=== PATIENT | female | born 1940 | race Caucasian/White ===

== ENCOUNTER 2017-07-02 17:45 | Inpatient (IN) | payer OTHER, MEDICARE ==
[~2017-07-02] VITALS: Ht 152.4 cm; Wt 76.9 kg
[2017-07-02 18:37] LABS: BASOPHIL % 0.3 % (0-2); PLATELET COUNT 233 x10^3mcL (130-400)
[2017-07-02 18:42] LABS: RED CELL DISTRIBUTION WIDTH 19.5 % (11.5-14.5)
[2017-07-02 18:46] LABS: CALCIUM 8.4 mg/dL (8.5-10.1); CHLORIDE SERUM 107 mmol/L (98-107); CREATININE SERUM 1.6 mg/dL (0.6-1.0); GLUCOSE SERUM 104 mg/dL (74-106); POTASSIUM SERUM 3.9 mmol/L (3.5-5.1); SODIUM SERUM 142 mmol/L (136-145)
[2017-07-02 18:51] LABS: ALBUMIN 3.4 g/dL (3.4-5.0); ALKALINE PHOSPHATASE 64 U/L (46-116); ALT/SGPT 13 U/L (14-59); AST/SGOT 16 U/L (15-37); BILIRUBIN TOTAL 0.44 mg/dL (0.20-1.00); TOTAL PROTEIN, SERUM 6.6 g/dL (6.4-8.2); rbc morphology (normal/abnorm) ABNORMAL (NORMAL)
[2017-07-02 18:52] LABS: ovalocyte/elliptocyte 1+
[2017-07-02 19:04] LABS: UA SPECIFIC GRAVITY 1.015 (1.005-1.035); microscopic required? YES; urine erythrocyte 3+ (NEGATIVE)
[2017-07-02 20:06] LABS: T3 TOTAL 0.9 ng/mL
[2017-07-02 20:15] LABS: FREE T4 1.42 ng/dL (0.76-1.46); FREE THYROXINE INDEX 3.7 ug/dL (1.4-4.5); T4(THYROXINE) 10.2 ug/dL (4.7-13.3)
[2017-07-02 20:53] LABS: CHOLESTEROL/HDL RATIO 1.7; MAGNESIUM 2.1 mg/dL (1.8-2.4); PHOSPHOROUS 3.2 mg/dL (2.5-4.9)
[2017-07-02] MEDS ORDERED: NIFEDIPINE60 MG PO (21:07)
[2017-07-02] MEDS ORDERED: PENTOXIFYL XR400 M1 PO (21:07)
[2017-07-02] MEDS ORDERED: ZOCOR40 MG PO (21:08)
[2017-07-02] MEDS ORDERED: XARELTO10 M1 PO (21:08)
[2017-07-02] MEDS ORDERED: METOPROLOL TART25 M1 PO (21:09)
[2017-07-02] MEDS ORDERED: METFORMIN HCL500 MG PO ×2 (21:09→22:10)
[2017-07-02 21:42] VITALS: BP 150/50
[2017-07-02 23:44] LABS: TOTAL IRON BINDING CAPACITY 365 ug/dL (250-450)
[2017-07-02 23:46] LABS: BASOPHIL % 0.2 % (0-2); PLATELET COUNT 215 x10^3mcL (130-400)
[2017-07-02 23:50] LABS: RED CELL DISTRIBUTION WIDTH 22.9 % (11.5-14.5)
[2017-07-02 23:51] LABS: IRON 16 ug/dL (50-170)
[2017-07-02 23:59] LABS: RED BLOOD CELLS 3.56 M/mm3 (4.10-5.10)
[2017-07-03 05:46] VITALS: BP 134/53
[2017-07-03 06:19] LABS: BASOPHIL % 0.4 % (0-2); PLATELET COUNT 225 x10^3mcL (130-400)
[2017-07-03 06:31] LABS: CALCIUM 8.1 mg/dL (8.5-10.1); CARBON DIOXIDE 23.8 mmol/L (21-32); CHLORIDE SERUM 109 mmol/L (98-107); CREATININE SERUM 1.1 mg/dL (0.6-1.0); GLUCOSE SERUM 92 mg/dL (74-106); MAGNESIUM 2.2 mg/dL (1.8-2.4); PHOSPHOROUS 3.4 mg/dL (2.5-4.9); POTASSIUM SERUM 3.7 mmol/L (3.5-5.1); SODIUM SERUM 143 mmol/L (136-145)
[2017-07-03 06:52] LABS: RED CELL DISTRIBUTION WIDTH 23.3 % (11.5-14.5)
[2017-07-03 08:08] LABS: rbc morphology (normal/abnorm) ABNORMAL (NORMAL)
[2017-07-03 08:09] LABS: ovalocyte/elliptocyte 1+; tear drop cell (dacryocyte) 1+
[2017-07-03 09:22] VITALS: BP 137/51
[2017-07-03 13:50] VITALS: BP 130/59
[2017-07-03 17:44] VITALS: BP 123/50
[2017-07-03 21:00] VITALS: BP 117/47
[2017-07-04 05:58] VITALS: BP 113/50
[2017-07-04 07:05] LABS: CHLORIDE SERUM 109 mmol/L (98-107); CREATININE SERUM 0.8 mg/dL (0.6-1.0); GLUCOSE SERUM 89 mg/dL (74-106); PHOSPHOROUS 2.7 mg/dL (2.5-4.9); POTASSIUM SERUM 3.3 mmol/L (3.5-5.1); SODIUM SERUM 142 mmol/L (136-145)
[2017-07-04 07:07] LABS: BASOPHIL % 0.4 % (0-2); PLATELET COUNT 202 x10^3mcL (130-400)
[2017-07-04 07:14] LABS: RED CELL DISTRIBUTION WIDTH 23.4 % (11.5-14.5)
[2017-07-04 07:24] LABS: rbc morphology (normal/abnorm) ABNORMAL (NORMAL)
[2017-07-04 09:07] VITALS: Ht 152.4 cm; Wt 76.9 kg
[2017-07-04 09:22] VITALS: BP 114/42
[2017-07-04 12:52] VITALS: BP 119/48
[2017-07-04 17:22] VITALS: BP 120/46
[2017-07-04 21:03] VITALS: BP 130/57
[2017-07-05 05:53] VITALS: BP 137/58
[2017-07-05 06:32] LABS: CALCIUM 8.2 mg/dL (8.5-10.1); CARBON DIOXIDE 24.2 mmol/L (21-32); CHLORIDE SERUM 110 mmol/L (98-107); CREATININE SERUM 0.9 mg/dL (0.6-1.0); GLUCOSE SERUM 93 mg/dL (74-106); PHOSPHOROUS 2.8 mg/dL (2.5-4.9); SODIUM SERUM 142 mmol/L (136-145)
[2017-07-05 07:28] LABS: BASOPHIL % 0.6 % (0-2); PLATELET COUNT 201 x10^3mcL (130-400)
[2017-07-05 07:29] LABS: RED CELL DISTRIBUTION WIDTH 23.8 % (11.5-14.5)
[2017-07-05 07:30] LABS: rbc morphology (normal/abnorm) ABNORMAL (NORMAL)
[2017-07-05 09:00] VITALS: BP 138/61
[2017-07-05 13:32] VITALS: BP 143/53
[2017-07-05 16:40] VITALS: BP 149/59
[2017-07-05 21:41] VITALS: BP 139/69
[2017-07-05 22:27] LABS: rbc morphology (normal/abnorm) ABNORMAL (NORMAL)
[2017-07-06 05:40] VITALS: BP 134/61
[2017-07-06 10:02] VITALS: BP 149/53
[2017-07-06 10:15] VITALS: BP 149/53
[2017-07-06 17:14] VITALS: BP 142/61
[2017-07-06 21:39] VITALS: BP 118/62
[2017-07-07 04:24] LABS: BASOPHIL % 0.6 % (0-2); PLATELET COUNT 193 x10^3mcL (130-400)
[2017-07-07 04:27] LABS: RED CELL DISTRIBUTION WIDTH 22.9 % (11.5-14.5)
[2017-07-07 04:28] VITALS: BP 136/55
[2017-07-07 04:41] LABS: CARBON DIOXIDE 24.3 mmol/L (21-32); CHLORIDE SERUM 107 mmol/L (98-107); CREATININE SERUM 0.8 mg/dL (0.6-1.0); GLUCOSE SERUM 92 mg/dL (74-106); MAGNESIUM 1.8 mg/dL (1.8-2.4); PHOSPHOROUS 3.6 mg/dL (2.5-4.9); POTASSIUM SERUM 3.6 mmol/L (3.5-5.1); SODIUM SERUM 141 mmol/L (136-145)
[2017-07-07 09:07] VITALS: BP 126/48
[2017-07-07 09:20] VITALS: BP 116/55
[2017-07-07 15:45] VITALS: BP 116/55
== END 2017-07-07 16:15 | disposition short-term general hospital (02) | DRG 532 ==
LOC: ED 17:45 → DU 19:28 → MU 07-06 08:39
PROVIDERS: Emergency Medicine; Family Medicine
PROC: 30233N1 Transfusion of Nonautologous Red Blood Cells into Peripheral Vein, Percutaneous Approach (ICD-10-PCS; 2017-07-02)
PROC: 3E0234Z Introduction of Serum, Toxoid and Vaccine into Muscle, Percutaneous Approach (ICD-10-PCS; principal; 2017-07-03)
DX: N95.0 Postmenopausal bleeding (principal); N17.0 Acute kidney failure with tubular necrosis; I50.43 Acute on chronic combined systolic (congestive) and diastolic (congestive) heart failure; D62 Acute posthemorrhagic anemia; E11.51 Type 2 diabetes mellitus with diabetic peripheral angiopathy without gangrene; E11.621 Type 2 diabetes mellitus with foot ulcer; L97.419 Non-pressure chronic ulcer of right heel and midfoot with unspecified severity; B95.62 Methicillin resistant Staphylococcus aureus infection as the cause of diseases classified elsewhere; E83.51 Hypocalcemia; I10 Essential (primary) hypertension; I25.10 Atherosclerotic heart disease of native coronary artery without angina pectoris; D50.8 Other iron deficiency anemias; N39.0 Urinary tract infection, site not specified; E78.5 Hyperlipidemia, unspecified; Z90.710 Acquired absence of both cervix and uterus; Z86.718 Personal history of other venous thrombosis and embolism; Z79.01 Long term (current) use of anticoagulants; Z82.49 Family history of ischemic heart disease and other diseases of the circulatory system; Z82.3 Family history of stroke; Z83.3 Family history of diabetes mellitus; Z23 Encounter for immunization
CPT/HCPCS: 82962; 83880; 84439; 90658; J0696; J1200; J1644; J2916; J3490; J7030; J7040; P9016; Q0092; Q0162; Q9967

== ENCOUNTER 2018-11-17 17:48 | Inpatient (IN) | payer OTHER, MEDICARE ==
[~2018-11-17] VITALS: Ht 157.5 cm; Wt 57.0 kg
[~2018-11-17 17:48] MED LIST: METFORMIN HCL500 MG PO; METOPROLOL TART25 M1 PO; NIFEDIPINE60 MG PO; PENTOXIFYL XR400 M1 PO; XARELTO10 M1 PO; ZOCOR40 MG PO
--- NOTE | 2018-11-17 18:09 | NUR ---
PT BIB [facility] FOR SOB REPORTEDLY SINCE 2PM. FAMILY WAS ADVISED BY HOME HEALTH NURSE TO BRING PT TO ED. PT ARRIVES WITH LABORED BREATHING WHEEZE NOTED UPON AUSCULTATION THROUGHOUT. PT IS AWAKE FOLLOWS SOME COMMANDS APHASIC DUE TO RECENT STROKE WITH R SIDED DEFICITS. PT HAS STAGE 4 CERVICAL/LUNG/AND LIVER CA PT PLACED ON FULL CM SINUS TACH ARRIVED WITH 2ND BREATHING TX IN PROGRESS OF ALBUTEROL ATROVENT. FAMILY AT BEDSIDE AWAITING MD CASTILLO AND ORDERS WILL MONITOR
--- NOTE | 2018-11-17 18:30 | NUR ---
PT OFF O2FOR ABG BLOOD DRAW
--- NOTE | 2018-11-17 18:42 | NUR ---
MSE COMPLETED BY DR LEIJA
--- NOTE | 2018-11-17 19:06 | NUR ---
REPORT GIVEN TO JUNAID BYRNES RESUMING CARE OF PT
--- NOTE | 2018-11-17 19:08 | NUR ---
REPORT RECEIVED FROM KRISTAL BYRNES TO ASSUME CARE OF PT. PT IN POSITION OF COMFORT. DAUGHTER STS THAT PT STS THAT HER STOMACH HURTS. INFORMED. DAUGHTER STS THAT IT AWLAYS HURTS. +BOWEL SOUNDS IN ALL 4 QUAD. VSS. PT HAS RESP LABORED BREATING ON 2L NC. VSS. WILL CONTINUE TO MONITOR. XRAY AT BEDSIDE.
--- NOTE | 2018-11-17 19:15 | NUR ---
LAB AT BEDSIDE.
[2018-11-17 19:23] LABS: microscopic required? YES; urine erythrocyte 3+ (NEGATIVE)
[2018-11-17 20:25] LABS: PLATELET COUNT 309 x10^3mcL (130-400)
[2018-11-17 20:27] LABS: RED CELL DISTRIBUTION WIDTH 17.4 % (11.5-14.5)
[2018-11-17 20:34] LABS: ALKALINE PHOSPHATASE 164 U/L (46-116); ALT/SGPT 20 U/L (14-59); AST/SGOT 28 U/L (15-37); BILIRUBIN TOTAL 0.31 mg/dL (0.20-1.00); CALCIUM 8.3 mg/dL (8.5-10.1); CHLORIDE SERUM 121 mmol/L (98-107); GLUCOSE SERUM 121 mg/dL (74-106); POTASSIUM SERUM 4.1 mmol/L (3.5-5.1); SODIUM SERUM 153 mmol/L (136-145); TOTAL PROTEIN, SERUM 6.3 g/dL (6.4-8.2)
[2018-11-17 20:41] LABS: ALBUMIN 2.4 g/dL (3.4-5.0); CARBON DIOXIDE 7.8 mmol/L (21-32)
[2018-11-17 20:42] LABS: CREATININE SERUM 4.3 mg/dL (0.6-1.0)
[2018-11-17 20:54] LABS: BAND NEUTROPHIL 2 % (0-10); BASOPHIL 0 % (0-2); MONOCYTE 4 % (0-7); SEGMENTED NEUTROPHILS 78 % (37-75); rbc morphology (normal/abnorm) ABNORMAL (NORMAL)
[2018-11-17] MEDS ORDERED: DEXAMETHASONE4 MG PO (21:27)
[2018-11-17] MEDS ORDERED: LEVOTHYROXIN0.025 M2 PO (21:27)
[2018-11-17] MEDS ORDERED: PEPCID20 MG PO (21:28)
[2018-11-17] MEDS ORDERED: HYDROCORTISONE V0.2% TOP (21:28)
[2018-11-17] MEDS ORDERED: LORAZEPAM0.5 MG PO (21:28)
[2018-11-17] MEDS ORDERED: BENADRYL ALLERG25 M1 PO (21:28)
[2018-11-17] MEDS ORDERED: [UNRECOGNIZED DRUG - OTHER] MM (21:29)
[2018-11-17] MEDS ORDERED: NIFEDIPINE60 MG PO (21:29)
[2018-11-17] MEDS ORDERED: PROCHLORPERAZIN10 MG PO (21:29)
[2018-11-17] MEDS ORDERED: SENNA8.6 M2 PO (21:30)
[2018-11-17] MEDS ORDERED: XARELTO10 M1 PO (21:31)
--- NOTE | 2018-11-17 21:55 | NUR ---
PT TRANSFERRED FROM ER VIA [facility] ACCOMPANIED BY 1 RN AND 1 EMT. PT TRANSFERRED TO ICU BED WITH FULL ASSIST. PT APPEARS LETHARGIC BUT AROUSABLE. ABLE TO TRACK WITH EYES. PT APHASIC. HX: STROKE WITH R SIDED DEFICIT. PERRLA NOTED. EENT FREE OF DISCHARGE. RESPS EVEN AND TACHYPNEIC ON O2 2LPM VIA NC. CHEST RISE EQUAL AND SYMMETRICAL. LUNGS SOUNDS EXP WHEEZES, DIM BASES. THREAD SEPARATOR IN PLACE SHOWING ST WITH HR 145. CHEST WALL STABLE. NO S/SX OF CP, SYNCOPE, OR DIZZINESS. PULSES PALPABLE X4. CAP REFILL < 3 SECS. NO EDEMA NOTED. IV TO R WRIST G 20 INTACT AND PATENT. IVF NS INFUSING @ 100ML/HR. R UPPER KRIS CATH NOTED. PTS DAUGHTER STS PT HAD 5-6 LOOSE STOOL DAILY. ABD FLAT, SOFT, NONTENDER TO TOUCH. BOWEL SOUNDS HYPOACTIVE. F/C INTACT AND DRAINING VIA GRAVITY, SLIGHT BLOOD TINGED WITH SEDIMENTS NOTED. R ANKLE ULCER, DSG CDI. BUE SCATTERED ECCHYMOSIS. GEN WEAKNESS NOTED. TURNED AND REPOSITIONED Q2H FOR PRESSURE RELIEF. FALL PRECAUTIONS IN PLACE. PT ON NEUTROPENIC PRECAUTION D/T ONGOING CHEMOTHERAPY FOR PRESENT CANCER. ALL NEEDS MET AT THIS TIME. WILL CONTINUE TO MONITOR.
[2018-11-17 22:38] VITALS: BP 148/82
--- NOTE | 2018-11-17 23:00 | NUR ---
16 FR F/C INSERTED AT EASE USING ASEPTIC TECHNIQUE. CATHETER SECURED TO R INNER THIGH. 150ML OF CLOUDY YELLOW URINE THEN BLOOD TINGED URINE RETURN NOTED TO BAG. DR TAVERA AT BEDSIDE MADE AWARE. F/C DRAINIG VIA GRAVITY. WILL CONTINUE TO MONITOR.
[2018-11-17 23:35] VITALS: BP 144/64
[2018-11-18 00:09] VITALS: BP 149/65
--- NOTE | 2018-11-18 01:54 | NUR ---
DR TAVERA AT BEDSIDE WITH DARNELL BYRNES TO TRANSLATE, SPEAKING TO DAUGHTER AT BEDSIDE.
[2018-11-18 03:15] VITALS: BP 129/66
[2018-11-18 04:49] LABS: PLATELET COUNT 262 x10^3mcL (130-400)
[2018-11-18 05:02] LABS: RED CELL DISTRIBUTION WIDTH 16.9 % (11.5-14.5)
[2018-11-18 05:15] LABS: CALCIUM 8.1 mg/dL (8.5-10.1); CHLORIDE SERUM 126 mmol/L (98-107); CREATININE SERUM 3.9 mg/dL (0.6-1.0); GLUCOSE SERUM 122 mg/dL (74-106); POTASSIUM SERUM 3.9 mmol/L (3.5-5.1); SODIUM SERUM 156 mmol/L (136-145)
[2018-11-18 05:20] LABS: BAND NEUTROPHIL 1 % (0-10); MONOCYTE 2 % (0-7); SEGMENTED NEUTROPHILS 87 % (37-75)
[2018-11-18 05:21] LABS: CARBON DIOXIDE 8.2 mmol/L (21-32)
[2018-11-18 05:24] LABS: acanthocyte (spur cell) 1+; rbc morphology (normal/abnorm) ABNORMAL (NORMAL); schistocyte (helmet cell) 1+
--- NOTE | 2018-11-18 06:03 | NUR ---
PT NOTED WITH SMALL AMT OF STOOL, COLLECTED AND SENT TO LAB. PT CLEANED. F/C CARE PROVIDED. LINENS CHANGED. REPOSITIONED TO COMFORT.
--- NOTE | 2018-11-18 06:05 | NUR ---
PT FACIAL GRIMACING AND TACHYCARDIC. PTS DAUGHTER AT BEDSIDE REQUESTING FOR PAIN MED. DR STALEY MADE AWARE. AWAITING FOR FURHTER ORDERS.
--- NOTE | 2018-11-18 06:31 | NUR ---
CREDIT PRODUCT ANALYST CALLED STATES TO CLAMP MYERS AT THIS TIME. WILL BE SEEING PT IN AN HR.
--- NOTE | 2018-11-18 06:32 | NUR ---
ABNORMAL LABS REPORTED TO DR STALEY. AWAITING FOR FURTHER ORDERS.
--- NOTE | 2018-11-18 06:37 | NUR ---
DR TAVERA MADE AWARE, NO DIET ORDERED. DR TAVERA STATES WAITING FOR SWALLOW EVAL TO BE DONE.
--- NOTE | 2018-11-18 07:30 | NUR ---
PT IS AWAKE AND ALERT BUT APHASIC. ABLE TO FOLLOW SIMPLE COMMANDS SUCH HAND TUNGSTEN REFINER; RT SIDE WEAKNESS NOTED; MILD SOB NOTED; O2 AT 2L/NC IN USE; HOB ELEVATED; DENIES PAIN. IVF NSS AT 100 ML/HR INFUSING; RW SITE PATENT AND WITHOUT INFILTRATION. RT AVILEZ DSG NOTED AND VISITOR IN THE ROOM REFUSED TO OPEN THE DSG FOR ASSESSMENT. RT CHEST PORTACATH IN PLACE AND COVERED WITH BANDAID; MYERS CATHETER DRAINING BLOOD TINGED URINE BY GRAVITY. FALL, SAFETY AND NEUTROPENIC PRECAUTION OBSERVED. WILL CONTINUE TO MONITOR STATUS.
[2018-11-18 08:00] VITALS: BP 141/66
--- NOTE | 2018-11-18 08:00 | NUR ---
PT HAD BM WITH DIARRHEAL DARK BROWN STOOLS; PT KEPT CLEAN AND DRY;
[2018-11-18 08:22] VITALS: Ht 157.5 cm; Wt 57.0 kg
--- NOTE | 2018-11-18 10:18 | NUR ---
0835-RENAL US BEING DONE IN THE ROOM 0930-PT ABLE TO SWALLOW A SMALL AMOUNT OF APPLE SAUCE WITHOUT SIGN OF ASPIRATION; TOOK SCHEDULED MED LOPRESSOR WITH APPLE SAUCE AGAIN WITHOUT SIGNS OF ASPIRATION BUT REFUSED TO TAKE FURTHER MEDS AFTER; FAMILY IN THE ROOM AND ARE AWARE. 1000-PHYSICAL THERAPIST ANA IN THE ROOM ASSESSING PT; PT'S O2 SAT FLUCTUATES TO HIGH 80'S TO LOW 90'S DURING ACTIVITY; O2 SAT SENSOR TRANSFERRED TO FINGER; 1022-PT SLEEPING AT THIS TIME; O2 SAT IS 98%
--- NOTE | 2018-11-18 11:05 | NUR ---
ROUNDS WITH THE MEDICAL TEAM. IS AWARE OF THE US RENAL RESULTS.
--- NOTE | 2018-11-18 11:16 | NUR ---
DR. FAIRCHILD, RESIDENTS, TUBE FORMER OPERATOR AND PRIMARY RN AT BEDSIDE FOR MORNING ROUNDS. PT'S FAMILY AT BEDSIDE AND UPDATED. HOSPICE EVAL TO BE ORDERED. PT ALSO STABLE TO TRANSFER TO [facility]. WILL CONT TO MONITOR.
--- NOTE | 2018-11-18 11:30 | NUR ---
DR. SHARP FOR NEPHRO CONSULT IS HERE; ASSESSED PT, TALKED TO GRANDDAUGHTER AND GAVE VERBAL ORDERS.
[2018-11-18 12:00] VITALS: BP 148/54
--- NOTE | 2018-11-18 12:00 | NUR ---
DR. CORDOVA CHECKING PT AND TALKING TO GRANDDAUGHTER.
--- NOTE | 2018-11-18 13:30 | NUR ---
1215-NOTED INVOLUNTARY MOVT OF THE MOUTH IF CHEWING; GRANDDAUGHTER ALSO REPORTED UNWITNESSED INVOLUNTARY MOVT OF THE RT EYE; PER ACID DUMPER, FAMILY REPORTED SAME EPISODE ON THE PREVIOUS SHIFT; PT REMAIN NSR ON THE MONITOR; WILL CONTINUE TO MONITOR STATUS. NOT IN RESPIRATORY DISTRESS. 1230-ATTEMPTED TO ADVANCE MYERS CATHETER BUT MET WITH RESISTANCE AND NOTED BLOODY OUTPUT; BLADDER SCAN DONE AND NOTED GREATER THAN 900 ML OF URINE IN THE BLADDER; DR. STALEY MADE AWARE.
--- NOTE | 2018-11-18 15:00 | NUR ---
COUDE MYERS CATHETER FR. 14 REINSERTED BY SONIYA LOMBARDO AND FOUNTAIN BRUSH ASSEMBLER IRENE X1 ATTEMPT.
--- NOTE | 2018-11-18 16:24 | NUR ---
FAMILY MEMBERS IN THE ROOM; PT IS SLEEPING AND NOT IN ANY DISTRESS.
[2018-11-18 16:25] VITALS: BP 130/61
--- NOTE | 2018-11-18 17:45 | NUR ---
MESSAGE LEFT FOR REHAB DEPT I WAS TOLD BY ANA EARLIER TODAY THAT STEVE WOULD BE STOPPING BY FOR A SWALLOW EVAL HOWEVER THAT DID NOT OCCUR. MESSAGE LEFT TO FOLLOW UP IN THE AM DIET IS PENDING OF SWALLOW EVAL RESULTS.
--- NOTE | 2018-11-18 18:07 | NUR ---
PT WILL BE TRANSFERRED TO [facility] 207 A PER MD ORDER.
--- NOTE | 2018-11-18 18:29 | NUR ---
REPORT GIVEN TO JACINTA BYRNES. PT IS GOING MST 828V
[2018-11-18 19:10] VITALS: BP 136/49
--- NOTE | 2018-11-18 19:10 | NUR ---
RECEIVED PT FROM ICU.PT AWAKE,RESPONSIVE TO VERBAL AND TACTILE STIMULI.NON-VERBAL AT THIS TIME.BREATHING EASY AND NON-LABORED.O2 @ 2L/MIN VIA N/C.NO S/S OF PAIN OR DISCOMFORT.BP 136/49 MMHG,HR 83.F/C TO RED COLORED OUTPUT.DRESSING TO R FOOT INTACT.PLACED ON AIR MATTRESS.ON NEUTROPENIC PRECAUTIONS.FAMILY AT BEDSIDE.WILL CONTINUE TO MONITOR.
--- NOTE | 2018-11-18 21:32 | NUR ---
SEEN BY DR. HALE WITH NEW ORDERS MADE AND WILL CARRY OUT.
--- NOTE | 2018-11-19 04:41 | NUR ---
PT SLEPT WELL WITH FAMILY AT BEDSIDE.BREATHING EASY AND NON-LABORED WITH OCCASSIONAL COUGHING NOTED.NO ASE NOTED FROM VANCOMYCIN PO ATB.NA BICARB @ 125 ML/HR INFUSINF AND TOLERATING WELL.F/C EMPTIED TO DARK NELI COLORED URINE RED TINGED URINE.ON CONTACT ISOLATION FOR C-DIFF STOOL.GOODHANDWASHING TECHNIQUE OBSERVED.ALL NEEDS ANTICPATED AND MET,WILL CONTINUE TO MONITOR.
[2018-11-19 05:33] VITALS: BP 139/59
--- NOTE | 2018-11-19 05:48 | NUR ---
DR. GRAHAM MADE AWARE PT HAD RUN SVT FOR 4.5 SE,NON SUSTAINED.VSS.BP 139/59 MMHG,HR 87.NO NEW ORDERS AT THIS TIME.
[2018-11-19 06:29] LABS: CALCIUM 7.7 mg/dL (8.5-10.1); CARBON DIOXIDE 21.5 mmol/L (21-32); CHLORIDE SERUM 125 mmol/L (98-107); CREATININE SERUM 3.5 mg/dL (0.6-1.0); GLUCOSE SERUM 122 mg/dL (74-106); MAGNESIUM 1.6 mg/dL (1.8-2.4); PHOSPHOROUS 3.3 mg/dL (2.5-4.9)
[2018-11-19 06:37] LABS: POTASSIUM SERUM 2.6 mmol/L (3.5-5.1); SODIUM SERUM 164 mmol/L (136-145)
--- NOTE | 2018-11-19 06:42 | NUR ---
CALLED DR. NOYOLA AND MADE AWARE OF THIS AM LABS K-2.6 AND NA LEVEL 164.WILL ENDORSE TO AM NURSE.
--- NOTE | 2018-11-19 07:39 | NUR ---
RECEIVED PATIENT FROM SONIYA EDWARDS. PATIENT IN BED AT THIS TIME, PATIENT IS A/OX1, PERSON. FREQUENT REORIENTATION TO SITUATION AND SURROUNDINGS, PATIENT UNABLE TO COMPREHEND. WILL CONTINUE TO MONITOR AND WATCH FOR SAFETY PRECAUTIONS. CALL LIGHT IN REACH AT THIS TIME.
--- NOTE | 2018-11-19 07:42 | NUR ---
RECEIVED PATIENT FROM SONIYA WATERS. PATIENT IN BED, RESPONDS TO TACTILE STIMULUS. PATIENT GRANDDAUGHTER AT BEDSIDE AT THIS TIME. CALL PLACED TO RESIDENT CELL PHONE, SPOKE WITH DR ESCOBAR FOR PATIENT POTASSIUM (2.6) AND SODIUM LEVELS (162). NEW ORDERS PLACED AT THIS TIME, CALL LIGHT IN REACH AT THIS TIME.
[2018-11-19 07:54] LABS: PLATELET COUNT 205 x10^3mcL (130-400)
[2018-11-19 07:58] LABS: BASOPHIL % 0 % (0-2)
[2018-11-19 09:13] VITALS: BP 149/54
--- NOTE | 2018-11-19 10:24 | NUR ---
PATIENT IN BED. FAMILY AT BEDSIDE. SEMI-TOLERATING PO MEDICATIONS. WILL CONTINUE TO MONITOR. FAMILY WAITING FOR CARE TEAM TO COME IN AND SPEAK WITH PATIENT. CALL LIGHT IN REACH, BED IN LOWEST POSITION.
--- NOTE | 2018-11-19 10:55 | NUR ---
DR SHARP AND CARE TEAM IN TO SEE PATIENT. DR SHARP STATES HE WILL ADJUST PATIENTS FLUIDS AND ORDER ADDITIONAL K RIDER. DR STALEY AND DR MOORE MADE AWARE. PATIENT IN BED AT THIS TIME, FAMILY AT BEDSIDE.
[2018-11-19 13:13] VITALS: BP 106/46
--- NOTE | 2018-11-19 13:25 | NUR ---
PATIENT IN BED RESTING. FAMILY AT BEDSIDE. FLUIDS CHANGED FOR PATIENT PER DR ROACH. BAG 1 OF 40 MEQ KCL COMPLETE. PATIENT TOLERATED CRUSHED PO MEDICATIONS WITH APPLE SAUCE. PATIENT ABLE TO CLEAR AIRWAY WITH PRODUCTIVE COUGH. WILL CONTINUE TO MONITOR AND ADMINISTER ADDITIONAL 40 MEQ KCL TODAY. CALL LIGHT IN REACH.
--- NOTE | 2018-11-19 15:04 | NUR ---
PATIENT TACHYCARDIC AT THIS TIME, HR 114, WITH SOB. TEMP 99.8. BP IS 138/51. RR 22. 95% O2 ON 2 LPM. RESPIRATORY THERAPIST CALLED FOR PRN BREATHING TREATMENT.
[2018-11-19 16:23] VITALS: BP 107/59
--- NOTE | 2018-11-19 16:26 | NUR ---
PT WAS SEEN FOR DYSPHAGIA. PT HAD MILD POCKETING FOR PUREE DIET. CONTINUE WITH FULL LIQUID DIET. RECOMMENDATION CONTINUE WITH FULL LIQUID DIET.
--- NOTE | 2018-11-19 17:41 | NUR ---
PATIENT IN BED. PATIENT HAS FACIAL GRIMACE AND APPEARS TENSE. FAMILY AT BEDSIDE. PAIN CONTROL ASKED BY FAMILY, PRN MORPHINE 1 MG ADMINISTERED. PO MEDICATIONS HELD DUE TO ASPIRATION PRECAUTIONS AND BY REQUEST BY FAMILY. WILL ENDORSE TO ONCOMING NURSE. CALL LIGHT IN REACH, BED IN LOWEST POSITION.
--- NOTE | 2018-11-19 19:25 | NUR ---
PATIENT RECEIVED IN BED DURING BEDSIDE HANDS OFF WITH OUT GOING NURSE WITH EYES CLOSED, OPEN EYES BRIEFLY WHEN NAME CALLED AND WITH TACTILE STIMULI NO VERBALIZATION, RT SIDE DEFITI 2/2 HX: CVA.GENERALIZED WEAKNESS. FOUND ON 2LNC SAT 97-99%, NO RESP. DISTRESS, BREATHINGE STEPH AND UNLABORED. NO INDICATION OF CHEST PAINS HR=98BPM, TELE# 21 SR WITH PAC'S. IV SITE TO RFA PATENT AND INTACT SITE NO SIGN OF INFILTRATION NOR REDNESS IVF INFUSING VIA PUMP OF D51/4 NS AT 100 ML/HR. HX; CERVICAL CA, LAST CHEMO WAS AUGUST OF THIS YEAR, RT CHEST KRIS CATH NOT BEING ACCESS. MYERS CATHETER DRAINING NELI UA, STAT LOCK TO THIGH INTACT, NO DEPENDENT LOOPS NOTED ON MYERS TUBING, MYERS BAG OFF THE FLOOR. PATIENT WITH GENERALIZED WEAKNESS AND BED BOUND, AIR MATTRESS IN PLACE, SCD ON BLE IN USE, BILAT HEEL PROTECTOR IN PLACE. NO S/S OF DISCOMFORTS NOR PAIN. PATIENT COMFORTABLE. PATIENT INFORMED ABOUT POC THIS SHIFT. SAFETY/FALL PREC. MAINTAINED. PATIENT WITH HX; C-DIFF. CONTACT ENHANCED ISOLATION OBSERVED AND MAINTAINED , SIGN OUTSIDE ROOM. WILL CONTINUE TO MONITOR.
--- NOTE | 2018-11-19 19:37 | NUR ---
REPORTED PATIENT OFF TO SONIYA RAY, MADE AWARE OF INSULIN COVERAGE AND TODAYS SITUATION. PATIENT IN BED AT THIS TIME. METFORMIN PO GIVEN.
--- NOTE | 2018-11-19 19:42 | NUR ---
REPORTED OFF TO RN CECILIA. MADE AWARE OF TODAYS PLAN OF CARE AND FOR PATIENT COMFORT. CALL LIGHT IN REACH, FAMILY AT BEDSIDE.
--- NOTE | 2018-11-19 20:00 | NUR ---
PATIENT IS TURNED TO HER RT SIDE THIS TIME, KEPT HOB ELEVATED AT SEMI FOWLERS FOR COMFORT. REMAINED COMFORTABEL.
[2018-11-19 20:19] VITALS: BP 127/59
--- NOTE | 2018-11-19 21:49 | NUR ---
WHEN ABOUT TO GIVE MED, ACCIDENTALLY FELL ON THE FLOOR. DR MILES MADE AWARE AWAITS ORDER.
--- NOTE | 2018-11-19 22:30 | NUR ---
PATIENT TURNED TO HER BACK THIS TIME.NO DISTRESS NOTED, PATIENT COMFORTABLE. WILL CONTINUE TO MONITOR.
--- NOTE | 2018-11-20 00:22 | NUR ---
PATIENT TURNED TO HER LEFT SDIE THIS TIME, SUPPORTING BACK WITH PILLOW, KEPT BLE ELEVATED ON A PILLOW. COMFORTABLE THIS TIME. DAUGHTER LORETTA AT BEDSIDE, HAD REQUESTED NOT TO TURN MOTHER AT 2 AM, INFORMED ABOUT REASON FOR TURNING. WILL CONTINUE TO MONITOR.
--- NOTE | 2018-11-20 02:16 | NUR ---
PATIENT WAS ATTEMPTING TO PULL TELE WIRES AND LINE PER DAUGHTER. PATIENT IS MORE AWAKE, O2 AT 2LNC MAINTAINED SAT 99%. TURNED AND REPOSITIONED THIS TIME OT HER RT SIDE, KEPT HOB ELEVAYED AY SEMI FOWLERS POSITION. HIDE LINE TO PREVENT FROM PULLING. WHEN ASKED IF SHE IS IN PAIN NODDED SIDE TO SIDE WHICH DAUGHTER SAID SHE IS NOT IN PAIN. SAFETY MAINTAINED. WILL CONTINUE TO MONITOR.
--- NOTE | 2018-11-20 02:42 | NUR ---
RECEIVED CALL FROM LAB (Geraldine). REPORTED A POSITIVE STOOL C-DIFF. WILL INFORMED MD AND WILL CONTINUE CONTACT ISOLATION.
--- NOTE | 2018-11-20 04:20 | NUR ---
AT 0358- AWNING HANGER HELPER CALLED AND REPORTED PATIENT HAD A RUN OF SVT HU=[id number], PATIENT CHECKED AND WAS GRIMACING, DAUGHTER STATED THAT SHE NORMALLY DOES THAT WHEN SHE IS IN PAIN AND ALSO WILL TRY TO PULL OUT TELE WIRES. CHECKED VS= TEMP=99.8, JT=[id number], RR=20BPM, FP=699/57, MAP=86, SAT ON 2LNC SAT 99%. DR HERNANDES MADE AWARE AND MD WITH ORDER TO GIVEN HER PRN MORPHINE SULFATE, ORDER CARRIED OUT.AND REPOSITIONED PATIENT TO MATT BACK. WILL CONTINUE TO MONITOR.
[2018-11-20 05:46] VITALS: BP 144/57
--- NOTE | 2018-11-20 05:49 | NUR ---
DR STALEY, CAME TO PATIENT ROOM, UPDATE WUTH ACTIVITY THAT HAPPENED DURING THE SHIFT.
--- NOTE | 2018-11-20 06:21 | NUR ---
PATIENT TURNED TO HER RIGHT SIDE THIS TIME, KEPT HOB AT SEMI FOWLERS POSITION. SR ON THE MONITOR NOW. PATIENT MORE CALM AND WITH NO RESP. DISTRESS, O2 AT 2LNC MAINTAINED. IV SITE NO SIGN OF INFILTRATION. MYERS CATHETER DRAINED PINKISH COLORED UA WITH LOTS OF SEDIMENTS. MYERS CATH CARE RENDERED.DAUGHTER LORETTA AT BEDSIDE DURING THE ENTIRE SHIFT, UPDATED WITH POC. SAFETY/FALL PRECAUTION OBSERVD. CONTACT ISOLATION FOR POSITIVE C-DIFF OBSERVED AND MAINTAINED. EDUCATED DAUGHTER ABOUT INFECTION CONTROL. WILL ENDORSE CARE TO INCOMING NURSE.
[2018-11-20 07:09] LABS: CALCIUM 7.1 mg/dL (8.5-10.1); CHLORIDE SERUM 126 mmol/L (98-107); GLUCOSE SERUM 120 mg/dL (74-106); MAGNESIUM 1.6 mg/dL (1.8-2.4); PHOSPHOROUS 2.6 mg/dL (2.5-4.9)
--- NOTE | 2018-11-20 07:20 | NUR ---
BEDSIDE HANDS OFF AND INTRODUCTION PERFORMED WITH INCOMING NURSE YOVANNY-SONIYA.
[2018-11-20 07:52] LABS: CREATININE SERUM 4.2 mg/dL (0.6-1.0); SODIUM SERUM 162 mmol/L (136-145)
--- NOTE | 2018-11-20 08:00 | NUR ---
RECEIVED PATIENT RESTING IN BED COMFORTABLY WITH DAUGHTER AT BEDSIDE. PATIENT IS DROWSY BUT AROUSABLE TO VERBAL AND TACTILE STIMULI, NON-VERBAL, ABLE TO ANSWER YES/NO QUESTIONS BY NODDING HEAD. TELE # [address], DENIES CHEST PAIN. BREATHING EVEN AND UNLABBORED ON O2 2 L/MIN VIA NC, NO DISTRESS NOTED, HOB ELEVATED. MYERS CATH IN PLACE DRAINING TO GRAVITY, BAG IS OFF FLOOR. PATIENT DENIES ANY PAIN. IV TO RW INTACT INFUSING D5 1/2 NS AT 100 ML/HR FREE FROM REDNESS AND INFILTRATION, PATIENT IS CALM WITH CARE. DAUGHTER AT BEDSIDE. CONTACT ISOLATION PRECAUTIONS MAINTAINED. ALL NEEDS ATTENDED TO. SAFETY PRECAUTIONS MAINTAINED. WILL MONITOR.
[2018-11-20 08:05] LABS: BASOPHIL % 0.1 % (0-2); PLATELET COUNT 191 x10^3mcL (130-400)
[2018-11-20 08:06] LABS: RED CELL DISTRIBUTION WIDTH 16.9 % (11.5-14.5)
[2018-11-20 08:44] VITALS: BP 139/59
--- NOTE | 2018-11-20 08:48 | NUR ---
PATIENT SITTING UP IN BED AWAKE, FAMILY AT BEDSIDE. PATIENT ABLE TO TAKE HALF OF HER MORNING MEDICATION CRUSHED WITH APPLE SAUCE, NO DIFFICULTY SWALLOWING OR POCKETING OF FOOD NOTED, BUT REFUSED TO TAKE THE REST (SEE eMAR). ALL NEEDS ATTENDED TO, SAFETY PRECAUTIONS MAINTAINED, WILL MONITOR.
--- NOTE | 2018-11-20 11:43 | NUR ---
PATIENT RESTING IN BED COMFORTABLY NO DISTRESS NOTED, FAMIY AT BEDSIDE. BS 110, NO COVERAGE NEEDED PER SLIDING SCALE. ALL NEEDS ATTENDED TO, SAFETY PRECAUTIONS MAINTAINED. WILL MONITOR.
[2018-11-20 11:52] VITALS: BP 110/55
[2018-11-20 13:09] VITALS: BP 110/55
--- NOTE | 2018-11-20 13:15 | NUR ---
AT [id number]: DR. SCHULTZ AT BEDSIDE TO SEE PATIENT, FAMILY AT BEDSIDE. RECEIVED VERBAL ORDER FROM DR. SCHULTZ FOR BLADDER SCAN. BLADDER SCAN DONE WITH 160 ML OF URINE NOTED IN BLADDER, DR. SCHULTZ MADE AWARE, NO FURTHER ORDERS RECEIVED. PATIENT NOTED WITH FACIAL GRIMICING, MEDICATED WITH MORPHINE IVP (SEE eMAR) FOR PAIN. ALL NEEDS ATTENDED TO, SAFETY PRECAUTIONS MAINTAINED. WILL MONITOR.
--- NOTE | 2018-11-20 14:03 | NUR ---
PATIENT RESTING IN BED COMFORTABLY WITH EYES CLOSED, NO DISTRESS NOTED. FAMILY AT BEDSIDE. ALL NEEDS ATTENDED TO, SAFETY PRECAUTIONS MAINTAINED. WILL MONITOR.
--- NOTE | 2018-11-20 14:35 | NUR ---
THEA FROM [facility] AT BEDSIDE TO SPEAK WITH FAMILY. FAMILY ARGREEABLE FOR PATIENT TO GO HOME ON HOSPICE. PER THEA SHE WILL MAKE ARRANGEMENT FOR PATIENT TO BE DISCHARGE HOME WITH HOSPICE TODAY. DR. STALEY MADE AWARE AND SPEAKING TO THEA. PER THEA SHE WILL CALL WITH AN ETA FOR LAUNDROMAT MANAGER TIME, CALL BACK NUMBER PROVIDED TO THEA. ALL QUESTIONS AND CONCERNS ADDRESSED, CHARGE NURSE MADE AWARE. WILL FOLLOW UP WITH D/C ORDERS.
--- NOTE | 2018-11-20 14:57 | NUR ---
Initial Nutrition Assessment: (-) CITLALLI ROY 78F Dx: UTI, Sepsis, Renal failure PMHx: HTN, DM, Ovarian CA, Recent C.Diff+, DVT, R leg, Clots R arm PSHx: Hysterectomy Labs: Na 162 H, BG 120 H, BUN 94 H, Cr 4.2 Alb 2.4 H, Ca 7.1 L, Mg 1.6 L, Alk Phos 164 H Meds: Colace, Lipitor, Lopressor, Pepcid, Synthroid, Trental, Zofran, Vancomycin Diet: Full Liquid PO intake since admission: 0% Ht: 62 in Wt: 125# BMI: 23 Bed scale: Error reading, equipement on bed IBW: 110# %IBW: 114% UBW: 130# Age: 78 Food Allergies: NKFA Skin: Dannie: 13 Edema: Trace pitting BLE, pulses weak GI: Abd soft non-distended, active BS all quad, Hx C.Diff, awating result of send stool for C.Diff, contact isolation observed Last BM: 11/18 RD Note (11/20): Consult received for diet recommendation for caloric needs (pt end stage ovarian CA). Visited pt bedside, uncommunicative. Spoke w/ pt's son and daughter, both state pt has poor appetite, but no problems chewing or swallowing. Both state pt was having diarrhea a few days ago, but no c/o diarrhea at this time. Both state pt continues to receive food trays of full liquid diet, but does not consume any of it. Instructed pt's son and daughter to continue to encourage pt for better PO intake. Provided and explained handout on Diabets and Chronic Kidney Disease, which nutrients of which to be aware, and types of appropriate foods. Son and daughter would like to continue receiving Ensure Enlive w/ each meal. Spoke w/ Dr Munroe regarding ONS, confirmed. Problem with: N/V/D/C: Problems with: Chewing: No Swallowing: No Current appetite: poor Recent wt change: -12# x 2 mo (per son) %wt change: -8.8% Vitamin/Supplement use: Ensure @home Special diet at home: Regular Physical activity: N/A Nutrition education given (specify specific nutrition education and handout given): Diabetes & Chronic Kidney Disease Stages 1 Through 4: Nutrition Guidelines - nutrients of concern and examples of appropriate and inappropriate foods. Food-drug interactions? Education given? Diabetes & Chronic Kidney Disease Stages 1 Through 4: Nutrition Guidelines Estimated Nutritional Needs Based on current body weight (57 kg) Energy: 1460-0772 kcal/day (35-40 kcal/kg for sepsis, cancer on chemo, unintended wt loss) Protein: 34-46 g/day (0.8-1.0 g/kg for renal failure) Fluid: 4711-3001 mL/day (1 mL/kcal) or per MD Nutrition Diagnosis: Increased nutrient needs r/t sepsis, chemotherapy, unintended wt loss AEB need for 35-40kcal/kg, -10# x 3 days (7.4%). Intervention 1. When appropriate per MD, advance diet as tolerated to Renal 45g Pro diet 2. Add Ensure Enlive TID w/ each meal 3. Consider Banatrol+ BID r/t C.Diff. Monitor/Evaluate Goal: PO intake at least 75% of estimated needs Monitor: PO intake, Labs, GI function F/U in 2-3 days as high risk 11/22-11/23
--- NOTE | 2018-11-20 15:35 | NUR ---
DR. STALEY AT BEDSIDE TO SPEAK WITH PATIENTS DAUGHTER MARY AND VISITOR AT BEDSIDE REGARDING PLAN OF CARE, PATIENT BEING DISCHARGED HOME ON HOSPICE. ALL QUESTIONS AND CONCERNS ADDRESSED. SAFETY PRECAUTIONS MAINTAINED.
[2018-11-20 16:53] VITALS: BP 99/60
--- NOTE | 2018-11-20 17:18 | NUR ---
PATIENT NOTED TO BE RESTLESS WITH FACIAL GRIMACING AND LEFT HAND SHACKING, MEDICATED WITH MORPHINE IVP (SEE eMAR) FOR COMFORT. FAMILY AT BEDSIDE. ALL NEEDS ATTENDED TO, SAFETY PRECAUTIONS MAINTAINED. WILL MONITOR.
[2018-11-20] MEDS ORDERED: ENSURE ENLIVE237 ML PO (17:54)
[2018-11-20] MEDS ORDERED: BANATROL PLUS1 SOL PO (17:55)
[2018-11-20 18:32] VITALS: BP 99/60
--- NOTE | 2018-11-20 18:45 | NUR ---
PATIENT BEING DISCHARGED HOME ON HOSPICE, SPOKE WITH THEA FROM [facility] WHO CONFIRMED EVERYTHING IS ARRANGED AT HOME AND PATIENT CAN BE DISCHARGED HOME TODAY, [facility] AT BEDSIDE. PER THEA PATIENT OKAY TO BE DISCHARGED HOME WITH MYERS CATH. ALL QUESTIONS AND CONCERNS ADDRESSED. FAMILY AT BEDSIDE.
--- NOTE | 2018-11-20 18:57 | NUR ---
PATIENT BEING DISCHARGED HOME ON HOSPICE, TRANSPORTATION AT BEDSIDE. IV TO RW REMOVED CATH INTACT. ID BANDS REMOVED, TELE MONITOR REMOVED AND RETURNED. PATIENT [facility]SF[facility] AND TRANSPORTATED DOWN TO [facility]. ALL PERSONAL BELONGINGS SENT HOME WITH PATIENTS DAUGHTER CITLALLI ROY, REVIEWED D/C PAPERWORK WITH DAUGHTER WELL.
--- NOTE | 2018-11-21 07:17 | NUR ---
PHYSICAL THERAPY DAILY NOTES CO-SIGN All documentation done by the Hearing Examiner for 11/20/18 has been reviewed. I agree with the documentation. Reviewed/Co-Signed by: Sury Tidwell PT Documentation Done by:HUMBERTO CHEUNG PTA
== END 2018-11-20 18:57 | disposition hospice, home (50) | DRG 720 ==
LOC: ED 17:48 → DU 21:16 → IC 21:16 → DU 11-18 18:59
PROVIDERS: Emergency Medicine; ADMIT General Practice
DX: A41.9 Sepsis, unspecified organism (principal); N17.0 Acute kidney failure with tubular necrosis; J96.20 Acute and chronic respiratory failure, unspecified whether with hypoxia or hypercapnia; E43 Unspecified severe protein-calorie malnutrition; R65.21 Severe sepsis with septic shock; C78.01 Secondary malignant neoplasm of right lung; E87.0 Hyperosmolality and hypernatremia; C56.2 Malignant neoplasm of left ovary; C78.02 Secondary malignant neoplasm of left lung; E83.42 Hypomagnesemia; D64.9 Anemia, unspecified; E87.6 Hypokalemia; Z51.5 Encounter for palliative care; R62.7 Adult failure to thrive; C78.7 Secondary malignant neoplasm of liver and intrahepatic bile duct; E86.0 Dehydration; E78.00 Pure hypercholesterolemia, unspecified; B96.89 Other specified bacterial agents as the cause of diseases classified elsewhere; N18.9 Chronic kidney disease, unspecified; I12.9 Hypertensive chronic kidney disease with stage 1 through stage 4 chronic kidney disease, or unspecified chronic kidney disease; E11.22 Type 2 diabetes mellitus with diabetic chronic kidney disease; N39.0 Urinary tract infection, site not specified; I69.351 Hemiplegia and hemiparesis following cerebral infarction affecting right dominant side; Z99.81 Dependence on supplemental oxygen; Z68.23 Body mass index [BMI] 23.0-23.9, adult; Z86.718 Personal history of other venous thrombosis and embolism; Z79.84 Long term (current) use of oral hypoglycemic drugs; Z90.710 Acquired absence of both cervix and uterus; Z82.3 Family history of stroke; Z82.49 Family history of ischemic heart disease and other diseases of the circulatory system; Z83.3 Family history of diabetes mellitus; Z92.21 Personal history of antineoplastic chemotherapy
CPT/HCPCS: 82962; 92526-GN; 92610; 94150; 97110-GP; 97530-GP; C1758; G0378; J0360; J0696; J1956; J2270; J3475; J3480; J3490; J7030; J8540; Q0092; Q0163